=== PATIENT | female | born 1975 | race Two or more races ===

== ENCOUNTER 2017-07-20 19:15 | Emergency (ER) | payer OTHER ==
[~2017-07-20] VITALS: Ht 165.1 cm; Wt 61.2 kg
[~2017-07-20 19:15] MED LIST: NO REPORTED MEDS
[2017-07-20 19:59] VITALS: BP 142/88
[2017-07-20] MEDS ORDERED: CEFTRIAXONE 1GM BAG (ER ONLY) 1 GM/50 ML PIGGYBACK IV ONE (20:30)
== END 2017-07-20 20:32 | disposition home or self-care (01) ==
LOC: ER 19:15
DX: S29.012A Strain of muscle and tendon of back wall of thorax, initial encounter (principal); X58.XXXA Exposure to other specified factors, initial encounter; Y92.89 Other specified places as the place of occurrence of the external cause; Y93.89 Activity, other specified; Y99.8 Other external cause status
CPT/HCPCS: 99283; A4606; Z7610

== ENCOUNTER 2017-12-06 23:39 | Emergency (ER) | payer BC ==
[~2017-12-06] VITALS: Ht 165.1 cm; Wt 57.2 kg
--- NOTE | 2017-12-07 01:35 | NUR ---
PT AMBULATORY TO ER BED 7. PT BIB SELF C/O ABD PAIN WITH NAUSEA AFTER TAKING TYLENOL W/CODEINE. "TOOK SOMA AND TYLENO WITH CODEINE AND FELT NAUSEOUS; PLACED A FINGER IN MY MOUTH TO THROW UP BUT COULDNT AND FELT PAIN IN MY STOMACH". PT VSS/RESP EVEN UNLABORED/NAD NOTED/SKIN WARM AND DRY/AOX4. AWAITING MD THOMPSON.
[2017-12-07] MEDS ORDERED: ONDANSETRON 4 MG TAB.RAPDIS ONE (01:54)
[2017-12-07] MEDS ORDERED: ONDANSETRON 4 MG TAB.RAPDIS SL ONE (02:00)
--- NOTE | 2017-12-07 02:24 | NUR ---
Patient discharged to home in stable condition. Written and verbal after care instructions given. Patient verbalizes understanding of instruction. Patient ambulatory with a steady gait.
[2017-12-07 02:26] VITALS: BP 126/74
== END 2017-12-07 02:27 | disposition home or self-care (01) ==
LOC: ER 23:39
DX: M54.9 Dorsalgia, unspecified (principal); R11.0 Nausea; T40.2X1A Poisoning by other opioids, accidental (unintentional), initial encounter; Y92.89 Other specified places as the place of occurrence of the external cause
CPT/HCPCS: A4606; Q0162; Z7610

== ENCOUNTER 2019-01-26 | Emergency (ER) | payer BC, OTHER ==
[~2019-01-26] VITALS: Ht 165.1 cm; Wt 60.3 kg
[2019-01-26 00:09] VITALS: BP 112/76
[2019-01-26] MEDS ORDERED: IBUPROFEN 600 MG TABLET PO ONE ×2 (01:00→01:08)
[2019-01-26] MEDS ORDERED: GUAIFENESIN/CODEINE 10 ML UDC ONE (01:08)
== END 2019-01-26 01:50 | disposition home or self-care (01) ==
LOC: ER 00:04
DX: J02.8 Acute pharyngitis due to other specified organisms (principal); B97.89 Other viral agents as the cause of diseases classified elsewhere; Z98.890 Other specified postprocedural states
CPT/HCPCS: 87804 ×2; 87880; 99283; A4606; 86403-TC; 87400